=== PATIENT | male | born 1990 | race Two or more races ===

== ENCOUNTER → 2017-12-31 | Emergency (ER) | payer OTHER ==
[~2017-12-31] VITALS: Ht 180.3 cm; Wt 86.2 kg
[~2017-12-31] MED LIST: APAP500 MG; ONE DAILY MEN'1 EACH PO
== END | disposition home or self-care (01) ==
LOC: ER 02:27
DX: R69 Illness, unspecified (principal); F10.129 Alcohol abuse with intoxication, unspecified